=== PATIENT | female | born 1995 | race Caucasian/White ===

== ENCOUNTER 2021-05-05 19:59 | Inpatient (IN) | payer OTHER ==
[~2021-05-05] VITALS: Ht 165.1 cm; Wt 94.8 kg
[2021-05-05 21:30] LABS: HEMOGLOBIN 13.5 gm/dl (12.3-15.3); RED BLOOD COUNT 4.28 M/UL (4.00-5.10); WHITE BLOOD COUNT 22.1 K/UL (4.5-11.0)
[2021-05-06] MEDS ORDERED: PRENATAL TABLE1 EAC1 PO (04:24)
[2021-05-06] MEDS ORDERED: DOCUSATE SODIU100 MG PO (17:49)
[2021-05-06] MEDS ORDERED: IBUPROFEN800 MG PO (17:49)
[2021-05-07 08:09] LABS: HEMOGLOBIN 10.3 gm/dl (12.3-15.3)
[2021-05-08] MEDS ORDERED: HYDROCODON-ACE1 EAC4 PO (08:33)
== END 2021-05-08 12:08 | disposition home or self-care (01) | DRG 807 ==
LOC: GENOP 19:59 → OB 05-06 04:19
PROVIDERS: Obstetrics & Gynecology; ADMIT Obstetrics & Gynecology
PROC: 10907ZC Drainage of Amniotic Fluid, Therapeutic from Products of Conception, Via Natural or Artificial Opening (ICD-10-PCS; principal; 2021-05-06)
PROC: 10E0XZZ Delivery of Products of Conception, External Approach (ICD-10-PCS; 2021-05-06)
PROC: 0KQM0ZZ Repair Perineum Muscle, Open Approach (ICD-10-PCS; 2021-05-06)
PROC: 10H07YZ Insertion of Other Device into Products of Conception, Via Natural or Artificial Opening (ICD-10-PCS; 2021-05-06)
PROC: 10H073Z Insertion of Monitoring Electrode into Products of Conception, Via Natural or Artificial Opening (ICD-10-PCS; 2021-05-06)
PROC: 4A1H7CZ Monitoring of Products of Conception, Cardiac Rate, Via Natural or Artificial Opening (ICD-10-PCS; 2021-05-06)
DX: O24.420 Gestational diabetes mellitus in childbirth, diet controlled (principal); Z37.0 Single live birth; Z3A.38 38 weeks gestation of pregnancy; O99.334 Smoking (tobacco) complicating childbirth; Z20.822 Contact with and (suspected) exposure to COVID-19; O77.0 Labor and delivery complicated by meconium in amniotic fluid; F17.210 Nicotine dependence, cigarettes, uncomplicated; O70.1 Second degree perineal laceration during delivery; Z98.890 Other specified postprocedural states
CPT/HCPCS: 36415; 51702; 81001; 82800; 82962; 85014; 85018; 85025; 85461; 86850; 86900; 86901; 90471; 90715; C9113; J0595; J2405; J2590; J2790; J3010; U0002